=== PATIENT | female | born 1980 | race Caucasian/White ===

== ENCOUNTER 2018-10-01 09:00 | Day surgery (SDC) | payer MEDICAID ==
[~2018-10-01 09:00] MED LIST: Midazolam 1 MG/ML 2 ML SDV ONE; Propofol 200 MG/20 ML SDV ONE; fentaNYL 100 MCG/2 ML SDV ONE
[2018-10-01] MEDS ORDERED: Dextrose 5%-Lactated Ringers 1,000 ML IV SCH (09:30)
[2018-10-01] MEDS ORDERED: Glycopyrrolate 0.2 MG/ML 2 ML SDV IVPUSH ONE (10:00)
--- NOTE | 2018-10-08 12:27 | OR ---
DATE OF PROCEDURE: 10/01/2018 PREOPERATIVE DIAGNOSIS: Weight regain status post Ash-en-Y gastric bypass. POSTOPERATIVE DIAGNOSIS: Weight regain status post Ash-en-Y gastric bypass associated with marked enlargement of gastric pouch. OPERATIVE PROCEDURES: Upper GI endoscopy with biopsies of gastric pouch for CLOtest. ANESTHESIA: IV sedation. INDICATION FOR PROCEDURE: This is a 38-year-old status post Ash-en-Y gastric bypass, done at [place], [place], in 2008. Preoperatively, she was 340 pounds and did get down to 189 pounds over the last several years. She has now regained a large amount of her weight, and the plan is to proceed with upper GI endoscopy with biopsies as indicated for evaluation of the anatomy to help guide future revisional surgery. Potential risks including bleeding and perforation were discussed, and the patient wishes to proceed. DETAILS OF PROCEDURE: The patient was taken to the operating room and placed in a left lateral decubitus position. IV sedation was administered, after which the upper GI endoscope was passed orally through the length of the esophagus and into the gastric pouch, from there through the gastrojejunostomy roughly 20 cm into the Ash limb. Findings included normal hypopharynx, larynx, upper esophageal sphincter, and esophageal body. EG junction likewise was unremarkable. Upon entering the gastric pouch, it was noted to be strikingly enlarged and almost spherical in dimension and from the gastrojejunostomy, esophagogastric junction was measured 11 cm, i.e., this was now roughly a grape fruit-sized gastric pouch. The gastrojejunostomy was also quite widened between those two factors. At this point, the patient has very limited restriction likely accounting for the patient's weight regain. Biopsies were then obtained from the gastric pouch and sent for CLOtest for H. pylori. Minimal bleeding from the biopsy site was seen. The procedure concluded. The patient was taken to the recovery room in a satisfactory condition. Reese See MD /[id number]
== END 2018-10-01 12:15 | disposition home or self-care (01) ==
LOC: JP.SDS 09:00
PROVIDERS: ATTEND Surgery
DX: K95.89 Other complications of other bariatric procedure (principal); K94.19 Other complications of enterostomy; F41.9 Anxiety disorder, unspecified; F31.9 Bipolar disorder, unspecified; E66.01 Morbid (severe) obesity due to excess calories; Z68.42 Body mass index [BMI] 45.0-49.9, adult
CPT/HCPCS: 43239; 87081; J2250; J2704; J3010; J3490; J7042